=== PATIENT | male | born 1995 | race Asian ===

== ENCOUNTER → 2016-12-09 | Outpatient (CLI) | payer OTHER ==
--- NOTE | ~2016-12-09 | CR170 ---
[facility]. [facility] A Service of [facility] & [facility] / [facility] RADIOLOGY TEXT RESULTS PATIENT: JAMES MAGAÑA LOCATION: [facility] : [birth year] UNIT #: [id number] AGE: [address]: Grace Link CIRCUITRY NEGATIVE INSPECTOR SEX: M ORDER DR: [id number] [address] [address] [id number] O MR#: [id number] Acc #: [id number] NAME: JAMES MAGAÑA : 1995 SEX: M STUDY DATE/TIME: 12/09/2016 11:41 UNIT: [facility] ROOM: STUDY DESCRIPTION: CR Knee 2 Views Rt Attending Physician: Grace Link A.P.R.N. Referring Physician: Grace Link A.P.R.N. Ordering Physician: Grace Link A.P.R.N. Primary Care Physician: Grace Link A.P.R.N. MEDICAL IMAGING REPORT This report is preliminary unless electronic signature is present. EXAM Right knee, 2 views; 12/09/2016. HISTORY Right knee pain when standing and moving since 2012. No known trauma. Right knee tingling. FINDINGS AP and lateral projection of the knee shows smooth articular anatomy without indication of fracture or dislocation at the major weight-bearing surface of the knee. There is no indication of radiopaque foreign body about the knee surface or joint effusion. IMPRESSION Normal right knee. Dictated by... Solitario Nieto M.D. THIS IS AN ELECTRONICALLY VERIFIED REPORT Solitario Nieto M.D. at 12/10/2016 2:37 PM WILI/rajan TD: 12/09/2016 19:03 JOB #: [id number] MEDICAL IMAGING REPORT Page 1 of 1
--- NOTE | ~2016-12-09 | CR169 ---
[facility]. [facility] A Service of [facility] & [facility] RADIOLOGY TEXT RESULTS PATIENT: JAMES MAGAÑA LOCATION: [facility] : [birth year] UNIT #: [id number] AGE: [address]: Grace Link STOPPER GRINDER SEX: M ORDER DR: [id number] [address] [address] [id number] O MR#: [id number] Acc #: [id number] NAME: JAMES MAGAÑA : 1995 SEX: M STUDY DATE/TIME: 12/09/2016 11:41 UNIT: [facility] ROOM: STUDY DESCRIPTION: CR Knee 2 Views Lt Attending Physician: Grace Link A.P.R.N. Referring Physician: Grace Link A.P.R.N. Ordering Physician: Grace Link A.P.R.N. Primary Care Physician: Grace Link A.P.R.N. MEDICAL IMAGING REPORT This report is preliminary unless electronic signature is present. EXAM Left knee 2 views 12/09/2016 HISTORY Left knee pain and tingling since 2012 when standing and moving no known trauma. FINDINGS AP and lateral projection of the knee shows smooth articular anatomy without indication of fracture or dislocation at the major weight-bearing surface of the knee. There is no indication of radiopaque foreign body about the knee surface or joint effusion. IMPRESSION Normal knee. Dictated by... Solitario Nieto M.D. THIS IS AN ELECTRONICALLY VERIFIED REPORT Solitario Nieto M.D. at 12/10/2016 2:37 PM WILI/savanah TD: 12/09/2016 19:02 JOB #: [id number] MEDICAL IMAGING REPORT Page 1 of 1
== END | disposition home or self-care (01) ==
LOC: SRAD 11:32
DX: M25.562 Pain in left knee (principal); M25.561 Pain in right knee
CPT/HCPCS: 73560